=== PATIENT | female | born 1960 | race Caucasian/White ===

== ENCOUNTER 2023-06-28 06:09 | Day surgery (SDC) | payer OTHER, SELFPAY ==
[2023-06-15 10:04] VITALS: BMI 39.8
[2023-06-15 10:37] LABS: Hematocrit 37.3 % (37.0-47.0); Hemoglobin 12.3 g/dL (12.0-16.0); Mean Platelet Volume 10.2 fL (7.4-10.4); Platelet Count 263 10^3/uL (130-400); Red Blood Cell Count 4.39 10^6/uL (4.20-5.40); Red Cell Dist. Width 14.8 % (11.5-14.5); White Blood Cell Count 6.1 10^3/uL (4.8-10.8)
[2023-06-15 11:07] LABS: Blood Urea Nitrogen 18 mg/dl (7-17); Calcium 9.1 mg/dl (8.4-10.2); Carbon Dioxide 26 mmol/L (22-30); Chloride 105 mmol/L (98-107); Estimated Creatinine Clearance 101 ml/min; Glucose 90 mg/dl (70-99); Potassium 4.1 mmol/L (3.5-5.1); Sodium 137 mmol/L (135-145); eGFR > 60.00
--- NOTE | 2023-06-20 13:33 | PTCARENOTE ---
Abnormal EKG ok per Dr. Martin.
[2023-06-28] VITALS (13 sets, daily range): BP systolic 111–147; BP diastolic 68–81; BMI 39.8
[2023-06-28] MEDS: NORMOSOL-R 1000 IV (06:37)
[2023-06-28] MEDS: TYLENOL 1000 MG PO (06:37)
[2023-06-28] MEDS: CELEBREX 200 MG PO (06:37)
--- NOTE | 2023-06-28 11:27 | PTCARENOTE ---
Patient stating that she is going home alone. Patient told she mush have someone at home with her for 24 hours. Patient states she is going to see if her friend Nilda will stay with her. Nilda at bedside and told patient needs someone with her for 24
hours.
== END 2023-06-28 11:26 | disposition home or self-care (01) ==
LOC: SDS 06:09
PROVIDERS: ATTENDING PHYSICIAN Orthopaedic Surgery Hand Surgery; FAMILY PHYSICIAN Family Medicine
DX: M75.112 Incomplete rotator cuff tear or rupture of left shoulder, not specified as traumatic (principal); M75.42 Impingement syndrome of left shoulder; M19.012 Primary osteoarthritis, left shoulder; M25.512 Pain in left shoulder
CPT/HCPCS: 29827; 29826; 36415; 80048; 85027; C1713; C1763

== ENCOUNTER → 2023-08-16 13:03 | Outpatient (REF) | payer OTHER, SELFPAY | LOC: RAD 13:03 | PROVIDERS: ATTENDING PHYSICIAN Family Medicine | DX: F17.210 Nicotine dependence, cigarettes, uncomplicated (principal) | CPT/HCPCS: 71271 ==

== ENCOUNTER → 2023-10-18 13:46 | Outpatient (REF) | payer OTHER, SELFPAY | LOC: WDC 13:46 | PROVIDERS: ATTENDING PHYSICIAN Nurse Practitioner Adult Health; FAMILY PHYSICIAN Family Medicine | DX: Z12.31 Encounter for screening mammogram for malignant neoplasm of breast (principal) | CPT/HCPCS: 77063; 77067 ==

== ENCOUNTER → 2024-05-14 11:39 | Outpatient (REF) | payer OTHER, SELFPAY | LOC: RAD 11:39 | PROVIDERS: ATTENDING PHYSICIAN Family Medicine | DX: K75.81 Nonalcoholic steatohepatitis (NASH) (principal) | CPT/HCPCS: 76700 ==

== ENCOUNTER → 2024-06-08 10:39 | Outpatient (REF) | payer OTHER, SELFPAY | LOC: RAD 10:39 | PROVIDERS: ATTENDING PHYSICIAN Internal Medicine Gastroenterology; FAMILY PHYSICIAN Family Medicine; REFERRING PHYSICIAN Physical Medicine & Rehabilitation | DX: K76.89 Other specified diseases of liver (principal); M54.12 Radiculopathy, cervical region | CPT/HCPCS: 72125; 74170; Q9967 ==

== ENCOUNTER 2024-08-10 06:23 | Day surgery (SDC) | payer OTHER, SELFPAY | END 2024-08-10 14:47 | disposition home or self-care (01) | LOC: GI 06:23 | PROVIDERS: ATTENDING PHYSICIAN Internal Medicine Gastroenterology | DX: K29.70 Gastritis, unspecified, without bleeding (principal); K44.9 Diaphragmatic hernia without obstruction or gangrene; K31.7 Polyp of stomach and duodenum; Z15.09 Genetic susceptibility to other malignant neoplasm; Z80.0 Family history of malignant neoplasm of digestive organs | CPT/HCPCS: 43239; 88305; 88342 ==

== ENCOUNTER → 2024-10-18 14:44 | Outpatient (REF) | payer OTHER, SELFPAY | LOC: WDC 14:44 | PROVIDERS: ATTENDING PHYSICIAN Nurse Practitioner Adult Health; FAMILY PHYSICIAN Family Medicine | DX: Z12.31 Encounter for screening mammogram for malignant neoplasm of breast (principal); R92.8 Other abnormal and inconclusive findings on diagnostic imaging of breast | CPT/HCPCS: 76642; 77063; 77067 ==

== ENCOUNTER 2024-11-16 06:15 | Day surgery (SDC) | payer OTHER, SELFPAY ==
[2024-11-16 07:17] VITALS: BMI 41.2
[2024-11-16 07:19] VITALS: BP 135/70
[2024-11-16 08:50] VITALS: BP 116/61; BP 135/70
[2024-11-16 09:00] VITALS: BP 116/67
[2024-11-16 09:15] VITALS: BP 112/63
[2024-11-16 09:30] VITALS: BP 138/68
[2024-11-16 09:50] VITALS: BP 137/66
== END 2024-11-16 10:15 | disposition home or self-care (01) ==
LOC: SDS 06:15
PROVIDERS: ATTENDING PHYSICIAN Internal Medicine Gastroenterology
DX: R19.8 Other specified symptoms and signs involving the digestive system and abdomen (principal); K22.89 Other specified disease of esophagus
CPT/HCPCS: 43239; 88305